=== PATIENT | female | born 1985 | race Caucasian/White ===

== ENCOUNTER 2017-01-09 05:38 | Emergency (ER) ==
[2017-01-09] MEDS ORDERED: NITROGLYCERIN SL PRN (05:47)
[2017-01-09] MEDS ORDERED: ASPIRIN PO STA (05:47)
[2017-01-09 06:41] LABS: MANUAL DIFF NEEDED? NO
[2017-01-09 06:45] LABS: BASO% 0.3 % (0.0-0.8); EOS# 0.09 X1000 (0.0-0.7); HEMATOCRIT 35.5 % (37.0-47.0); HEMOGLOBIN 12.3 g/dL (12.0-16.0); LYMPH# 3.19 X1000 (1.2-3.4); LYMPH% 34.7 % (20.5-51.1); MCH 29.1 PG (27-31); MCHC 34.6 g/dL (33-37); MCV 83.9 FL (81-99); MONO% 8.7 % (1.7-9.3); MPV 9.8 FL (7.4-10.4); NEUT% 55.3 % (42.2-75.2); PLT 342 X1000 (130-400); RBC 4.23 XMIL (4.2-5.4)
[2017-01-09 06:53] LABS: INR 1.08; PROTIME 11.4 Seconds (9.2-11.7); PTT 24.7 Seconds (22.0-36.0)
[2017-01-09 06:58] LABS: AGAP 14; ALBUMIN 4.1 g/dL (3.5-5.0); ALKALINE PHOSPHATASE 55 U/L (32-104); BUN 20 mg/dL (8-22); CALCIUM 9.1 mg/dL (8.8-10.2); CHLORIDE 100 mmol/L (98-107); CK PROFILE 83 U/L (24-173); COSMO 278; GOT 20 U/L (10-30); GPT 19 U/L (10-36); MAGNESIUM 1.8 mg/dL (1.5-2.7); POTASSIUM 3.6 mmol/L (3.5-5.1); SODIUM 138 mmol/L (136-145); TCO2 24 mmol/L (25-35); TOTAL BILIRUBIN 0.74 mg/dL (0.20-1.00); TOTAL PROTEIN 6.9 g/dL (6.3-8.3)
[2017-01-09 07:40] VITALS: BP 108/73
--- NOTE | 2017-01-09 08:06 | PROVIDER DOCUMENTATION ---
HPI-Chest Pain - General Chief Complaint: Chest Pain Stated Complaint: syncope Time Seen by Provider: 01/09/17 06:31 Source: patient Allergies/Adverse Reactions: Patient Allergies Allergy/AdvReac Type Severity Reaction Status Date / Time meperidine HCl * Allergy Severe ANAPHYLAXIS Verified 01/09/17 06:26 [From Demerol] prednisone Allergy HIVES Verified 01/09/17 06:26 Home Medications: Home Medication List Medication Instructions Recorded Confirmed Last Taken Type Desvenlafaxine Succinate [Pristiq 50 mg PO DAILY 01/09/17 01/09/17 01/08/17 History ER] Gabapentin [Neurontin] 100 mg PO TID 01/09/17 01/09/17 01/08/17 History Hydrocodone/Acetaminophen [[place] 1 each PO TID PRN 01/09/17 01/09/17 01/08/17 History 7.5-325 Tablet] Levothyroxine Sodium [Synthroid] 50 microgm PO DAILY 01/09/17 01/09/17 01/08/17 History Propranolol [Inderal] 10 mg PO TID 01/09/17 01/09/17 01/08/17 History - History of Present Illness-CP Nature of Presenting Problem: History of anxiety. S/p 4 months ago. Has been off of her klonopin. denies any other complaints. Location: reports: substernal Chest Pain Radiation: reports: no radiation Quality of Pain: reports: aching Severity in ED: mild Onset/Duration: just prior to arrival Timing: gone now Context/Activities at Onset: reports: light activity Modifying Factors: improves with: nothing Associated Symptoms: reports: denies symptoms Nitro Today/Relief: no nitro taken today Aspirin Treatment Today: no aspirin today Prior Chest Pain/Cardiac Workup: reports: no prior chest pain Similar Symptoms Previously?: No Recently Seen Here or By Another Healthcare Provider: No Review of Systems - Adult - REVIEW OF SYSTEMS - ADULT Constitutional: reports: no symptoms reported Eyes: reports: no symptoms reported Ears, Nose, Mouth & Throat: reports: no symptoms reported Cardiovascular: reports: see HPI, chest pain Respiratory: reports: no symptoms reported Gastrointestinal: reports: no symptoms reported Genitourinary: reports: no symptoms reported Musculoskeletal: reports: no symptoms reported Integumentary: reports: no symptoms reported Neurological: reports: no symptoms reported Psychiatric: reports: no symptoms reported Endocrine: reports: no symptoms reported Hematologic/Lymphatic: reports: no symptoms reported Allergic/Immunologic: reports: no symptoms reported All Other Systems: Reviewed and Negative Past History - Adult - PAST MEDICAL HISTORY-ADULT Review of Records: reports: Old Records Reviewed, Nursing Assessment Review, Medications Reviewed, Social history reviewed & non-contributory. Major Childhood Illnesses: reports: denies history Cardiovascular: reports: denies history Respiratory: reports: denies history Gastrointestinal: reports: denies history Obstetrical/Gynecological: reports: denies history Genitourinary: reports: denies history Musculoskeletal: reports: denies history Neurological: reports: denies history Endocrine/Immune: reports: denies history Other Conditions: reports: denies history - IMMUNIZATION STATUS Childhood Immunizations: See Nurse Assessment Flu Vaccine: See Nurse Assessment - SOCIAL HISTORY Smoking: denies Substance Use: none/never Alcohol Use Frequency: never Living Situation: family Physical Exam-General - PHYSICAL EXAM-ADULT Initial Vital Signs Reviewed: Yes - CONSTITUTIONAL General Appearance: appears well, alert, no apparent distress - EYES Eyes: PERRL/EOMI, pink conjunctivae, fundi clear, no AV nicking - HEAD, EARS, NOSE, MOUTH & THROAT HENMT: normocephalic/atraumatic, moist mucous membranes, normal ENT inspection - NECK Neck: non-tender, full range of motion - RESPIRATORY Respiratory: chest non-tender, lungs clear - CARDIOVASCULAR Cardiovascular: normal peripheral pulses - CHEST (BREASTS) Chest/Breast: deferred - GASTROINTESTINAL (ABDOMEN) Abdominal Exam: normal bowel sounds - GENITOURINARY Female Genitalia/Pelvic Exam: deferred Rectal Exam: deferred - LYMPHATIC Lymphatic: no adenopathy, axilla node tender - MUSCULOSKELETAL Back Exam: normal inspection, no CVA tenderness, no vertebral tenderness Extremity: normal range of motion, non-tender, normal gait - SKIN Integumentary: normal color, normal turgor, warm/dry - NEUROLOGIC 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 - Physician/ CATHLEEN Attestation Patient care was provided by Advanced Practice Provider:: Yes Advanced Practice Provider documentation review:: The Mid-level provider documentation, treatment plan and medical decision making was reviewed by the physician who agrees with all treatment and medical decision making by the MLP. The physician spent face to face time with patient:: Yes Advanced Practice Provider documentation review:: The physician spent face to face time with this patient and agrees with all MLP documentation, treatment, and medical decision making by the MLP. See provider notes for further information. Physician Attestation - Physician Attestation I, the provider, attest to the following statement:: Jameel Hagen Physician documentation Attestation:: This documentation recorded by the scribe accurately reflects the service I personally performed and the decisions made by me.
--- NOTE | 2017-01-09 08:29 | EKG Report ---
Test Performed on : 01/09/2017 05:49:48 AM Test Reason : CP/SOB Blood Pressure : / mmHG Vent. Rate : 075 BPM Atrial Rate : 075 BPM P-R Int : 160 ms QRS Dur : 082 ms QT Int : 366 ms P-R-T Axes : 053 043 021 degrees QTc Int : 408 ms Normal sinus rhythm. Normal ECG When compared with ECG of 18-MAR-2015 21:19, No significant change was found Unconfirmed Result
--- NOTE | 2017-01-09 08:32 | Diag Imaging Result Document ---
PROCEDURE NAME: CHEST-2 VIEWS - 01/09/2017 FRONTAL AND LATERAL CHEST, TWO VIEWS: COMPARISON: Compared to 03/18/2015. FINDINGS: The lungs are well expanded. The heart is not enlarged. The vessels are not distended. No pneumonia. No pleural effusions. No free air beneath the diaphragm. IMPRESSION: No acute abnormality.
== END 2017-01-09 08:18 | disposition home or self-care (01) ==
LOC: EDBD → ED 05:38
DX: R07.89 Other chest pain (principal); F41.9 Anxiety disorder, unspecified; R55 Syncope and collapse; Z79.899 Other long term (current) drug therapy
CPT/HCPCS: 36415; 71020; 80053; 82550; 83735; 83880; 84484; 85025; 85379; 85610; 85730; 93005; 99283